=== PATIENT | male | born 1995 | race Caucasian/White ===

== ENCOUNTER 2018-04-04 16:38 | Inpatient (IN) | payer BC ==
[~2018-04-04] VITALS: Ht 175.3 cm; Wt 74.3 kg
[2018-04-04] MEDS ORDERED: ONDANSETRON INJ 2 MG/ML 2 ML VIAL IV STA (17:39)
[2018-04-04] MEDS ORDERED: MoRPHine SULFATE 4 MG/ML 1 ML CARP\\VIAL IV STA (17:39)
[2018-04-04] MEDS ORDERED: SODIUM CHLORIDE 0.9% 1000ML 1,000 ML IV STA (17:39)
[2018-04-04 18:07] LABS: BASO % 0.1 %; BASO ABS # 0.01 K/uL (0-0.2); HEMATOCRIT 45.1 % (42-52); HEMOGLOBIN 15.4 g/dL (14.0-18.0); IG# 0.04 K/uL (0.00-0.02); LYMPH % 4.5 %; LYMPH ABS # 0.74 K/uL (1.2-3.4); MEAN CELL VOLUME 82.8 fL (80-100); MEAN CORPUSCULAR HEMOGLOBIN 28.3 pg (25-34); MEAN CORPUSCULAR HGB CONC 34.1 g/dl (32-36); MEAN PLATELET VOLUME 10.3 fL (7.4-10.4); MONO % 4.7 %; MONO ABS # 0.76 K/uL (0.11-0.59); NEUT % 90.5 %; NEUT ABS # 14.75 K/uL (1.4-6.5); PLATELET COUNT 281 K/uL (130-400); RED CELL DISTRIBUTION WIDTH CV 15.2 % (11.5-14.5); RED CELL DISTRIBUTION WIDTH SD 46.1 fL (36.4-46.3)
[2018-04-04 18:30] LABS: ALBUMIN 4.2 gm/dl (3.4-5.0); CALCIUM 9.8 mg/dl (8.5-10.1); CREATININE 1.36 mg/dl (0.60-1.40); TOTAL PROTEIN 8.9 gm/dl (6.4-8.2)
--- NOTE | 2018-04-04 19:01 | DIAGNOSTIC IMAGING REPORT ---
APPENDIX ULTRASOUND CLINICAL HISTORY: rlq pain, vomiting COMPARISON STUDY: No previous studies for comparison. FINDINGS: Imaging and right lower quadrant was performed and sales representative adding machines images are submitted for interpretation. The appendix is not visualized. There are no abnormal fluid collections. IMPRESSION: Nonvisualization of the appendix. The study is therefore nondiagnostic in regards to acute appendicitis Electronically signed by: Rad Garcia M.D. 04/04/2018 7:00 PM Dictated Date/Time: 04/04/2018 6:59 PM
[2018-04-04] MEDS ORDERED: IBUP-103 PO (19:07)
[2018-04-04] MEDS ORDERED: DEXT1CAP9 PO (19:07)
[2018-04-04] MEDS ORDERED: OPTIRAY 320 IV PRN (19:30)
--- NOTE | 2018-04-04 20:17 | DIAGNOSTIC IMAGING REPORT ---
CT ABD/PELVIS IV CONTRAST ONLY CLINICAL HISTORY: Right lower quadrant pain and vomiting COMPARISON STUDY: Appendiceal ultrasound dated 04/04/2018 TECHNIQUE: Following the IV administration of 116 mL of Optiray-320, CT scan of the abdomen and pelvis was performed from the lung bases to the proximal femurs. Images are reviewed in the axial, sagittal, and coronal planes. IV contrast was administered without complication. A dose lowering technique was utilized adhering to the principles of ALARA. CT DOSE: 297.11 mGy.cm FINDINGS: Lower chest: The heart is normal in size and configuration, without pericardial effusion. The lung bases and pleural spaces are clear. There is a 7 mm rounded structure anterior to the right lobe of the liver, likely representing a lymph node. Liver: The contrast-enhanced liver is normal in size, contour, and attenuation. There is no intrahepatic biliary ductal dilatation. The hepatic veins and portal veins are patent. Gallbladder: Unremarkable. Spleen: No splenic masses are visualized. There is trace perisplenic fluid. Pancreas: Unremarkable. Adrenal glands: Unremarkable. Kidneys: There is symmetric renal cortical enhancement. The kidneys are normal in size without hydronephrosis. Bowel: There are fluid-filled dilated small bowel loops. There is a small bowel feces sign. The distal small bowel is of normal caliber. The colon is decompressed. The findings are indicative of a small bowel obstruction. There is no portal venous gas. There is no pneumatosis. There is mild mesenteric edema. There is a left lower quadrant transition zone. There is no evidence of acute appendicitis. Peritoneum: There is a small amount of pelvic ascites. There is trace perisplenic fluid. Vasculature: The abdominal aorta is normal in course and caliber. Adenopathy: None. Pelvic viscera: The bladder, and pelvic viscera are unremarkable. Skeletal structures: No destructive osseous lesions are seen. IMPRESSION: Small bowel obstruction with mild mesenteric edema, and low volume ascites Electronically signed by: Rad Garcia M.D. 04/04/2018 8:16 PM Dictated Date/Time: 04/04/2018 8:07 PM
[2018-04-04] MEDS ORDERED: MAGNESIUM HYDROXIDE SUSP 30 ML UDC PO PRN (21:00)
[2018-04-04] MEDS ORDERED: ZOLPIDEM TARTRATE 5 MG TAB PO PRN (21:00)
[2018-04-04] MEDS ORDERED: ALUMINUM/MAGNESIUM/SIMETH (MAALOX MAX) 30 ML UDC PO PRN (21:00)
[2018-04-04] MEDS ORDERED: ACETAMINOPHEN 325 MG TAB PO PRN (21:00)
--- NOTE | 2018-04-04 21:20 | History and Physical ---
History & Physical Date & Time of Service: April 04, 2018 at 21:08 Chief Complaint: Stomach Pain, Vomiting, Dehydration Primary Care Physician: No Doctor, Assigned History of Present Illness Source: patient This is a 23YO male with acute onset abdominal pain mainly right sided with associated nausea and vomiting seen in ED tonight. He denies fever or chills. He denies urinary symptoms. He ate some questionable food a day ago but denies diarrhea or change in bowel habits. He had a small BM yesterday but not passing much since then. He vomited a few times but has somewhat resolved since work-up in ED began. A US was negative for appendicitis. A CT scan show SBO and some inflammatory changes. Past Medical/Surgical History Medical Problems: (1) Small bowel obstruction Family History Negative for IBD Social History Smoking Status: Never Smoker Smokeless Tobacco Use: No Alcohol Use: socially Drug Use: none Marital Status: single Housing status: lives with roommate Occupational Status: employed Allergies Coded Allergies: No Known Allergies (Unverified , 04/04/18) Home Medications Scheduled PRN Dextromethorphan-Phenylephrine (Vicks Dayquil Cold & Flu), 1 DOSE PO UD PRN for Cold/Flu Symptoms Ibuprofen Tab (Advil), 200 MG PO UD PRN for Pain or Fever Review of Systems Constitutional: No fever, No chills, No weight loss Eyes: No worsening of vision, No redness, No diplopia ENT: No sore throat, No trouble swallowing Respiratory: No cough, No sputum, No shortness of breath Cardiovascular: No chest pain, No edema Abdomen: + pain, + nausea, + vomiting, No diarrhea, No constipation, No GI bleeding Musculoskeletal: No joint pain, No muscle pain, No swelling Genitourinary - Male: No hematuria, No dysuria Neurologic: No problem reported Psychiatric: No problem reported Endocrine: No fatigue, No excessive thirst, No excessive urination Hematologic / Lymphatic: No problem reported Integumentary: No problem reported Allergic / Immunologic: No problem reported Physical Exam Vital Signs Date Time Temp Pulse Resp B/P (MAP) Pulse Ox O2 Delivery O2 Flow Rate FiO2 04/04/18 20:47 75 14 120/77 97 04/04/18 18:46 75 20 127/66 99 Room Air 04/04/18 16:41 36.7 110 18 137/90 96 General Appearance: WD/WN, no apparent distress Head: normocephalic, atraumatic Eyes: normal inspection, PERRL, sclerae normal ENT: normal ENT inspection Neck: supple, no adenopathy, trachea midline Respiratory/Chest: chest non-tender, lungs clear Cardiovascular: regular rate, rhythm, no gallop, no murmur Abdomen/GI: normal bowel sounds, soft, no organomegaly, + tenderness (moderate without peritoneal signs) Genitourinary - Male: normal male genitalia Back: normal inspection, no CVA tenderness, normal range of motion Extremities/Musculoskelatal: no calf tenderness, no pedal edema Neurologic/Psych: no motor/sensory deficits, alert, oriented x 3 Skin: normal color, warm/dry, no rash Lymphatic: no adenopathy Diagnostics Laboratory Results Results Past 24 Hours Test 04/04/18 17:45 04/04/18 17:55 Range/Units Urine Color DK YELLOW Urine Appearance CLEAR CLEAR Urine pH 5.0 4.5-7.5 Urine Specific [place] 1.035 1.000-1.030 Urine Protein 1+ NEG Urine Glucose (UA) NEG NEG Urine Ketones 3+ NEG Urine Occult Blood TRACE NEG Urine Nitrite NEG NEG Urine Bilirubin NEG NEG Urine Urobilinogen NEG NEG Urine Leukocyte Esterase NEG NEG Urine WBC (Auto) 1-5 0-5 /hpf Urine RBC (Auto) 0-4 0-4 /hpf Urine Hyaline Casts (Auto) 10-30 0-5 /lpf Urine Epithelial Cells (Auto) 20-30 0-5 /lpf Urine Bacteria (Auto) NEG NEG White Blood Count 16.30 4.8-10.8 K/uL Red Blood Count 5.45 4.7-6.1 M/uL Hemoglobin 15.4 14.0-18.0 g/dL Hematocrit 45.1 42-52 % Mean Corpuscular Volume 82.8 80-100 fL Mean Corpuscular Hemoglobin 28.3 25-34 pg Mean Corpuscular Hemoglobin Concent 34.1 32-36 g/dl Platelet Count 281 130-400 K/uL Mean Platelet Volume 10.3 7.4-10.4 fL Neutrophils (%) (Auto) 90.5 % Lymphocytes (%) (Auto) 4.5 % Monocytes (%) (Auto) 4.7 % Eosinophils (%) (Auto) 0.0 % Basophils (%) (Auto) 0.1 % Neutrophils # (Auto) 14.75 1.4-6.5 K/uL Lymphocytes # (Auto) 0.74 1.2-3.4 K/uL Monocytes # (Auto) 0.76 0.11-0.59 K/uL Eosinophils # (Auto) 0.00 0-0.5 K/uL Basophils # (Auto) 0.01 0-0.2 K/uL RDW Standard Deviation 46.1 36.4-46.3 fL RDW Coefficient of Variation 15.2 11.5-14.5 % Immature Granulocyte % (Auto) 0.2 % Immature Granulocyte # (Auto) 0.04 0.00-0.02 K/uL Sodium Level 136 136-145 mmol/L Potassium Level 4.0 3.5-5.1 mmol/L Chloride Level 97 98-107 mmol/L Carbon Dioxide Level 32 21-32 mmol/L Anion Gap 7.0 3-11 mmol/L Blood Urea Nitrogen 18 7-18 mg/dl Creatinine 1.36 0.60-1.40 mg/dl Est Creatinine Clear Calc Drug Dose 85.2 ml/min Estimated GFR () 85.0 Estimated GFR (Non- 73.3 BUN/Creatinine Ratio 13.4 10-20 Random Glucose 102 70-99 mg/dl Calcium Level 9.8 8.5-10.1 mg/dl Total Bilirubin 0.6 0.2-1 mg/dl Aspartate Amino Transf (AST/SGOT) 19 15-37 U/L Alanine Aminotransferase (ALT/SGPT) 20 12-78 U/L Alkaline Phosphatase 60 45-117 U/L Total Protein 8.9 6.4-8.2 gm/dl Albumin 4.2 3.4-5.0 gm/dl Globulin 4.7 2.5-4.0 gm/dl Albumin/Globulin Ratio 0.9 0.9-[address] ABD/PELVIS IV CONTRAST ONLY CLINICAL HISTORY: Right lower quadrant pain and vomiting COMPARISON STUDY: Appendiceal ultrasound dated 04/04/2018 TECHNIQUE: Following the IV administration of 116 mL of Optiray-320, CT scan of the abdomen and pelvis was performed from the lung bases to the proximal femurs. Images are reviewed in the axial, sagittal, and coronal planes. IV contrast was administered without complication. A dose lowering technique was utilized adhering to the principles of ALARA. CT DOSE: 297.11 mGy.cm FINDINGS: Lower chest: The heart is normal in size and configuration, without pericardial effusion. The lung bases and pleural spaces are clear. There is a 7 mm rounded structure anterior to the right lobe of the liver, likely representing a lymph node. Liver: The contrast-enhanced liver is normal in size, contour, and attenuation. There is no intrahepatic biliary ductal dilatation. The hepatic veins and portal veins are patent. Gallbladder: Unremarkable. Spleen: No splenic masses are visualized. There is trace perisplenic fluid. Pancreas: Unremarkable. Adrenal glands: Unremarkable. Kidneys: There is symmetric renal cortical enhancement. The kidneys are normal in size without hydronephrosis. Bowel: There are fluid-filled dilated small bowel loops. There is a small bowel feces sign. The distal small bowel is of normal caliber. The colon is decompressed. The findings are indicative of a small bowel obstruction. There is no portal venous gas. There is no pneumatosis. There is mild mesenteric edema. There is a left lower quadrant transition zone. There is no evidence of acute appendicitis. Peritoneum: There is a small amount of pelvic ascites. There is trace perisplenic fluid. Vasculature: The abdominal aorta is normal in course and caliber. Adenopathy: None. Pelvic viscera: The bladder, and pelvic viscera are unremarkable. Skeletal structures: No destructive osseous lesions are seen. IMPRESSION: Small bowel obstruction with mild mesenteric edema, and low volume ascites Impression Assessment and Plan SBO without previous surgeries; possibly inflammatory or likely infectious -no signs of ischemia -no hernias -no trauma -IVF -IV abx -ngt decompression -ambulate -serial exams and KUBs -attempt conservative treatment DVT prophylaxis -SCDs Protonix Pain control ASA Classification: ASA Class I Resuscitation Status VTE Prophylaxis Will order VTE Prophylaxis: Yes Social Service Consult None Apply
[2018-04-04 22:00] VITALS: BP 134/82; PULSE 85; TEMP 36.8; O2SAT 95; Ht 175.3 cm; Wt 74.3 kg
[2018-04-04] MEDS ORDERED: MoRPHine SULFATE 4 MG/ML 1 ML CARP\\VIAL ONE (22:09)
[2018-04-04] MEDS: LACTATED RINGER'S 1000ML 1,000 ML IV SCH (22:11)
[2018-04-04] MEDS: MoRPHine SULFATE 2 MG/ML CARP IV PRN (22:11)
[2018-04-04] MEDS ORDERED: MoRPHine SULFATE 2 MG/ML CARP IV PRN (22:15)
[2018-04-04] MEDS: ONDANSETRON INJ 2 MG/ML 2 ML VIAL IV PRN (22:19)
[2018-04-04 22:39] VITALS: O2SAT 95
[2018-04-04] MEDS: METRONIDAZOLE / NSS 500 MG in PREMIXED NSS 100 ML IV SCH (22:41)
--- NOTE | 2018-04-04 22:46 | EMERGENCY ROOM VISIT NOTE ---
History First contact with patient: 17:33 Chief Complaint: VOMITING Stated Complaint: SMALL BOWEL OBSTRUCTION Nursing Triage Summary: N/V and abdominal pain History of Present Illness The patient is a 23 year old male who presents to the Emergency Room with complaints of abdominal pain, nausea and vomiting. The patient reports that 2 days ago, he developed abdominal cramping and vomiting. He has had multiple episodes of vomiting since then and is unable to keep anything down. She states that the pain is primarily right-sided. He does report he ate some beef which could have been bad. He has not had a bowel movement for the past 2 days. He denies fevers or hematemesis. He denies any history of medical problems or abdominal surgeries. He states that the pain is a cramping, constant pain and rates the discomfort a 6/10. He does report the cramping becomes worse when he vomits. Review of Systems A complete 10 point review of systems was reviewed with the patient with pertinent positives and negatives as per history of present illness. All else were negative. Past Medical/Surgical History Medical Problems: (1) Small bowel obstruction Social History Smoking Status: Never Smoker Smokeless Tobacco Use: No Drug Use: none Marital Status: single Occupation Status: employed Current/Historical Medications Scheduled PRN Dextromethorphan-Phenylephrine (Vicks Dayquil Cold & Flu), 1 DOSE PO UD PRN for Cold/Flu Symptoms Ibuprofen Tab (Advil), 200 MG PO UD PRN for Pain or Fever Physical Exam Vital Signs Date Time Temp Pulse Resp B/P (MAP) Pulse Ox O2 Delivery O2 Flow Rate FiO2 04/04/18 20:47 75 14 120/77 97 04/04/18 18:46 75 20 127/66 99 Room Air 04/04/18 16:41 36.7 110 18 137/90 96 Physical Exam VITALS: Vitals are noted on the nurse's note and reviewed by myself. Vital signs stable. GENERAL: This is a 23-year-old male, in no acute distress, nondiaphoretic, well- developed well-nourished. SKIN: The skin was without rashes. EYES: Pupils equal round and reactive to light and accommodation. MOUTH: Mucous membranes slightly dry. NECK: Supple without nuchal rigidity. HEART: Regular rate and rhythm without murmurs gallops or rubs. LUNGS: Clear to auscultation bilaterally without wheezes, rales or rhonchi. ABDOMEN: Positive bowel sounds. Abdomen is soft, mildly distended. There is mild, diffuse tenderness throughout with more focal tenderness in the right lower to mid abdomen. No guarding or rebound tenderness. NEURO: Patient was alert and oriented to person place and time. Medical Decision & Procedures ER Provider Diagnostic Interpretation: APPENDIX ULTRASOUND FINDINGS: Imaging and right lower quadrant was performed and sales and merchandising representative images are submitted for interpretation. The appendix is not visualized. There are no abnormal fluid collections. IMPRESSION: Nonvisualization of the appendix. The study is therefore nondiagnostic in regards to acute appendicitis CT ABD/PELVIS IV CONTRAST ONLY FINDINGS: Lower chest: The heart is normal in size and configuration, without pericardial effusion. The lung bases and pleural spaces are clear. There is a 7 mm rounded structure anterior to the right lobe of the liver, likely representing a lymph node. Liver: The contrast-enhanced liver is normal in size, contour, and attenuation. There is no intrahepatic biliary ductal dilatation. The hepatic veins and portal veins are patent. Gallbladder: Unremarkable. Spleen: No splenic masses are visualized. There is trace perisplenic fluid. Pancreas: Unremarkable. Adrenal glands: Unremarkable. Kidneys: There is symmetric renal cortical enhancement. The kidneys are normal in size without hydronephrosis. Bowel: There are fluid-filled dilated small bowel loops. There is a small bowel feces sign. The distal small bowel is of normal caliber. The colon is decompressed. The findings are indicative of a small bowel obstruction. There is no portal venous gas. There is no pneumatosis. There is mild mesenteric edema. There is a left lower quadrant transition zone. There is no evidence of acute appendicitis. Peritoneum: There is a small amount of pelvic ascites. There is trace perisplenic fluid. Vasculature: The abdominal aorta is normal in course and caliber. Adenopathy: None. Pelvic viscera: The bladder, and pelvic viscera are unremarkable. Skeletal structures: No destructive osseous lesions are seen. IMPRESSION: Small bowel obstruction with mild mesenteric edema, and low volume ascites Laboratory Results 04/04/18 17:55 Red Blood Count 5.45, Mean Corpuscular Volume 82.8, Mean Corpuscular Hemoglobin 28.3, Mean Corpuscular Hemoglobin Concent 34.1, Mean Platelet Volume 10.3, Neutrophils (%) (Auto) 90.5, Lymphocytes (%) (Auto) 4.5, Monocytes (%) (Auto) 4.7, Eosinophils (%) (Auto) 0.0, Basophils (%) (Auto) 0.1, Neutrophils # (Auto) 14.75, Lymphocytes # (Auto) 0.74, Monocytes # (Auto) 0.76, Eosinophils # (Auto) 0.00, Basophils # (Auto) 0.01 04/04/18 17:55 Test 04/04/18 17:45 04/04/18 17:55 Urine Color DK YELLOW Urine Appearance CLEAR (CLEAR) Urine pH 5.0 (4.5-7.5) Urine Specific [place] 1.035 (1.000-1.030) Urine Protein 1+ (NEG) Urine Glucose (UA) NEG (NEG) Urine Ketones 3+ (NEG) Urine Occult Blood TRACE (NEG) Urine Nitrite NEG (NEG) Urine Bilirubin NEG (NEG) Urine Urobilinogen NEG (NEG) Urine Leukocyte Esterase NEG (NEG) Urine WBC (Auto) 1-5 /hpf (0-5) Urine RBC (Auto) 0-4 /hpf (0-4) Urine Hyaline Casts (Auto) 10-30 /lpf (0-5) Urine Epithelial Cells (Auto) 20-30 /lpf (0-5) Urine Bacteria (Auto) NEG (NEG) White Blood Count 16.30 K/uL (4.8-10.8) Red Blood Count 5.45 M/uL (4.7-6.1) Hemoglobin 15.4 g/dL (14.0-18.0) Hematocrit 45.1 % (42-52) Mean Corpuscular Volume 82.8 fL (80-100) Mean Corpuscular Hemoglobin 28.3 pg (25-34) Mean Corpuscular Hemoglobin Concent 34.1 g/dl (32-36) Platelet Count 281 K/uL (130-400) Mean Platelet Volume 10.3 fL (7.4-10.4) Neutrophils (%) (Auto) 90.5 % Lymphocytes (%) (Auto) 4.5 % Monocytes (%) (Auto) 4.7 % Eosinophils (%) (Auto) 0.0 % Basophils (%) (Auto) 0.1 % Neutrophils # (Auto) 14.75 K/uL (1.4-6.5) Lymphocytes # (Auto) 0.74 K/uL (1.2-3.4) Monocytes # (Auto) 0.76 K/uL (0.11-0.59) Eosinophils # (Auto) 0.00 K/uL (0-0.5) Basophils # (Auto) 0.01 K/uL (0-0.2) RDW Standard Deviation 46.1 fL (36.4-46.3) RDW Coefficient of Variation 15.2 % (11.5-14.5) Immature Granulocyte % (Auto) 0.2 % Immature Granulocyte # (Auto) 0.04 K/uL (0.00-0.02) Anion Gap 7.0 mmol/L (3-11) Est Creatinine Clear Calc Drug Dose 85.2 ml/min Estimated GFR () 85.0 Estimated GFR (Non- 73.3 BUN/Creatinine Ratio 13.4 (10-20) Calcium Level 9.8 mg/dl (8.5-10.1) Total Bilirubin 0.6 mg/dl (0.2-1) Aspartate Amino Transf (AST/SGOT) 19 U/L (15-37) Alanine Aminotransferase (ALT/SGPT) 20 U/L (12-78) Alkaline Phosphatase 60 U/L (45-117) Total Protein 8.9 gm/dl (6.4-8.2) Albumin 4.2 gm/dl (3.4-5.0) Globulin 4.7 gm/dl (2.5-4.0) Albumin/Globulin Ratio 0.9 (0.9-2) Medications Administered Medications (Trade) Dose Ordered Sig/Ankit Route Start Time Stop Time Status Last Admin Dose Admin Sodium Chloride 1,000 ml @ 999 mls/hr Q1H1M STAT IV 04/04/18 17:39 04/04/18 18:39 DC 04/04/18 18:19 999 MLS/HR Ondansetron HCl (Zofran Inj) 4 mg NOW STAT IV 04/04/18 17:39 04/04/18 17:41 DC 04/04/18 18:19 4 MG Morphine Sulfate (MoRPHine SULFATE INJ) 4 mg NOW STAT IV 04/04/18 17:39 18 17:42 DC 04/04/18 18:19 4 MG Ondansetron HCl (Zofran Inj) 4 mg Q6H PRN IV 04/04/18 21:00 6/18/18 20:59 04/04/18 22:19 4 MG Morphine Sulfate (MoRPHine SULFATE INJ) 4 mg Q1H PRN IV 04/04/18 21:00 04/18/18 20:59 04/04/18 22:11 4 MG ED Course The patient was evaluated as above. Labs were drawn and IV access was obtained. Patient was medicated with 1 L normal saline solution, 4 mg Zofran and 4 mg morphine IV. Ultrasound of the appendix was performed and read by radiology as above. This was found to be nondiagnostic. CT of the abdomen and pelvis was performed and read by radiology as above. Results were discussed with the patient. Case was discussed with Dr. Barbosa of general surgery. He will evaluate the patient for admission. Medical Decision Differential diagnosis includes appendicitis, cholecystitis, gastroenteritis, gastritis, small bowel obstruction, among others. The patient is a 23-year-old male who presents today complaining of abdominal pain and vomiting. Labs revealed leukocytosis of 16,000. Labs were otherwise unremarkable. Urinalysis was not suggestive of infection. I initially worked up the patient for appendicitis. Ultrasound of the appendix was nondiagnostic. CT was then performed and showed a small bowel obstruction. I am unsure of the etiology of this is the patient has had no previous surgeries or history of inflammatory bowel disease. NG tube was inserted. General surgery was consulted and evaluated the patient for admission. The patient's case was reviewed with Dr. Mercado, ED attending physician, who agreed with my assessment and treatment plan. Medication Reconcilliation Current Medication List: was personally reviewed by me Blood Pressure Screening Patient's blood pressure: Normal blood pressure Impression Primary Impression: Small bowel obstruction Departure Information Dispostion Admitted as an inpatient Condition FAIR Referrals No Doctor, Assigned (PCP) Forms HOME CARE DOCUMENTATION FORM, IMPORTANT VISIT INFORMATION Patient Instructions My [facility] [employer]
[2018-04-04 23:13] VITALS: BP 124/75; PULSE 66; TEMP 36.6; O2SAT 95
[2018-04-04] MEDS: CIPROFLOXACIN / D5W 400 MG in PREMIXED IN D5W 200 ML IV SCH (23:37)
[2018-04-05] MEDS ORDERED: MoRPHine SULFATE 4 MG/ML 1 ML CARP\\VIAL ONE ×3 (01:16→23:52)
[2018-04-05] MEDS: MoRPHine SULFATE 2 MG/ML CARP IV PRN ×3 (01:17→23:55)
[2018-04-05] MEDS: LACTATED RINGER'S 1000ML 1,000 ML IV SCH ×3 (05:45→21:11)
[2018-04-05] MEDS: METRONIDAZOLE / NSS 500 MG in PREMIXED NSS 100 ML IV SCH ×3 (05:45→21:11)
[2018-04-05] MEDS: ONDANSETRON INJ 2 MG/ML 2 ML VIAL IV PRN ×2 (05:49→21:11)
[2018-04-05 06:06] LABS: BASO % 0.1 %; BASO ABS # 0.01 K/uL (0-0.2); EOS % 0.2 %; EOS ABS # 0.02 K/uL (0-0.5); HEMATOCRIT 40.5 % (42-52); HEMOGLOBIN 13.5 g/dL (14.0-18.0); IG# 0.02 K/uL (0.00-0.02); LYMPH % 10.7 %; LYMPH ABS # 1.26 K/uL (1.2-3.4); MEAN CELL VOLUME 83.9 fL (80-100); MEAN CORPUSCULAR HGB CONC 33.3 g/dl (32-36); MEAN PLATELET VOLUME 10.1 fL (7.4-10.4); MONO % 9.9 %; MONO ABS # 1.16 K/uL (0.11-0.59); NEUT % 78.9 %; PLATELET COUNT 247 K/uL (130-400); RED CELL DISTRIBUTION WIDTH CV 15.5 % (11.5-14.5); RED CELL DISTRIBUTION WIDTH SD 47.6 fL (36.4-46.3); WHITE BLOOD COUNT 11.77 K/uL (4.8-10.8)
[2018-04-05 06:44] LABS: ALBUMIN 3.3 gm/dl (3.4-5.0); CREATININE 1.22 mg/dl (0.60-1.40); POTASSIUM 4.3 mmol/L (3.5-5.1); TOTAL PROTEIN 7.7 gm/dl (6.4-8.2)
[2018-04-05 07:21] VITALS: BP 135/77; PULSE 76; TEMP 36.7; O2SAT 96
--- NOTE | 2018-04-05 07:21 | DIAGNOSTIC IMAGING REPORT ---
KUB CLINICAL HISTORY: Small bowel obstruction COMPARISON STUDY: CT scan dated 04/04/2018 FINDINGS: There are dilated small bowel loops measuring up tor 40 mm in diameter. There is gas within nondistended colon. There is a nasogastric tube, the tip of which projects over the gastric cardia. There is contrast within the bladder. IMPRESSION: 1. Nasogastric tube with its tip at the level the gastric cardia 2. Small bowel obstructive pattern Electronically signed by: Rad Garcia M.D. 04/05/2018 7:20 AM Dictated Date/Time: 04/05/2018 7:19 AM
[2018-04-05 07:30] VITALS: O2SAT 96
[2018-04-05] MEDS ORDERED: NURSING VERBAL MED ORDER ONE ×2 (07:45→18:15)
[2018-04-05] MEDS ORDERED: PROMETHAZINE HCL INJ 25 MG in SODIUM CHLORIDE 0.9% 50ML 50 ML IV PRN (08:00)
--- NOTE | 2018-04-05 10:47 | Surgery Progress Note ---
Surgery Progress Note Date of Service April 05, 2018. Subjective Post OP Day: HD 2 + complaints (some nausea but pain better), + ambulating, + nausea, + diet (npo) , No bowel movement, No vomiting Objective Vital Signs: Date Time Temp Pulse Resp B/P (MAP) Pulse Ox O2 Delivery O2 Flow Rate FiO2 04/05/18 07:21 36.7 76 18 135/77 (96) 96 Room Air 04/05/18 00:15 Room Air 04/04/18 23:13 36.6 66 15 124/75 (91) 95 Room Air 04/04/18 22:39 95 Room Air 04/04/18 22:01 89 14 131/78 96 04/04/18 22:00 36.8 85 16 134/82 95 Room Air 04/04/18 20:47 75 14 120/77 97 04/04/18 18:46 75 20 127/66 99 Room Air 04/04/18 16:41 36.7 110 18 137/90 96 General Appearance: WD/WN, no apparent distress Head: normocephalic, atraumatic Neck: supple, trachea midline Respiratory/Chest: lungs clear Cardiovascular: regular rate, rhythm, no gallop, no murmur Abdomen: normal bowel sounds, soft, + distended (less), + tenderness Extremities: non-tender, no pedal edema Laboratory Results: Results Past 24 Hours Test 04/04/18 17:45 04/04/18 17:55 04/05/18 05:51 Range/Units Urine Color DK YELLOW Urine Appearance CLEAR CLEAR Urine pH 5.0 4.5-7.5 Urine Specific [place] 1.035 1.000-1.030 Urine Protein 1+ NEG Urine Glucose (UA) NEG NEG Urine Ketones 3+ NEG Urine Occult Blood TRACE NEG Urine Nitrite NEG NEG Urine Bilirubin NEG NEG Urine Urobilinogen NEG NEG Urine Leukocyte Esterase NEG NEG Urine WBC (Auto) 1-5 0-5 /hpf Urine RBC (Auto) 0-4 0-4 /hpf Urine Hyaline Casts (Auto) 10-30 0-5 /lpf Urine Epithelial Cells (Auto) 20-30 0-5 /lpf Urine Bacteria (Auto) NEG NEG White Blood Count 16.30 11.77 4.8-10.8 K/uL Red Blood Count 5.45 4.83 4.7-6.1 M/uL Hemoglobin 15.4 13.5 14.0-18.0 g/dL Hematocrit 45.1 40.5 42-52 % Mean Corpuscular Volume 82.8 83.9 80-100 fL Mean Corpuscular Hemoglobin 28.3 28.0 25-34 pg Mean Corpuscular Hemoglobin Concent 34.1 33.3 32-36 g/dl Platelet Count 281 247 130-400 K/uL Mean Platelet Volume 10.3 10.1 7.4-10.4 fL Neutrophils (%) (Auto) 90.5 78.9 % Lymphocytes (%) (Auto) 4.5 10.7 % Monocytes (%) (Auto) 4.7 9.9 % Eosinophils (%) (Auto) 0.0 0.2 % Basophils (%) (Auto) 0.1 0.1 % Neutrophils # (Auto) 14.75 9.30 1.4-6.5 K/uL Lymphocytes # (Auto) 0.74 1.26 1.2-3.4 K/uL Monocytes # (Auto) 0.76 1.16 0.11-0.59 K/uL Eosinophils # (Auto) 0.00 0.02 0-0.5 K/uL Basophils # (Auto) 0.01 0.01 0-0.2 K/uL RDW Standard Deviation 46.1 47.6 36.4-46.3 fL RDW Coefficient of Variation 15.2 15.5 11.5-14.5 % Immature Granulocyte % (Auto) 0.2 0.2 % Immature Granulocyte # (Auto) 0.04 0.02 0.00-0.02 K/uL Sodium Level 136 137 136-145 mmol/L Potassium Level 4.0 4.3 3.5-5.1 mmol/L Chloride Level 97 101 98-107 mmol/L Carbon Dioxide Level 32 30 21-32 mmol/L Anion Gap 7.0 6.0 3-11 mmol/L Blood Urea Nitrogen 18 14 7-18 mg/dl Creatinine 1.36 1.22 0.60-1.40 mg/dl Est Creatinine Clear Calc Drug Dose 85.2 95.0 ml/min Estimated GFR () 85.0 96.9 Estimated GFR (Non- 73.3 83.6 BUN/Creatinine Ratio 13.4 11.3 10-20 Random Glucose 102 99 70-99 mg/dl Calcium Level 9.8 9.0 8.5-10.1 mg/dl Total Bilirubin 0.6 0.8 0.2-1 mg/dl Aspartate Amino Transf (AST/SGOT) 19 14 15-37 U/L Alanine Aminotransferase (ALT/SGPT) 20 17 12-78 U/L Alkaline Phosphatase 60 52 45-117 U/L Total Protein 8.9 7.7 6.4-8.2 gm/dl Albumin 4.2 3.3 3.4-5.0 gm/dl Globulin 4.7 4.4 2.5-4.0 gm/dl Albumin/Globulin Ratio 0.9 0.7 0.9-2 Assessment & Plan SBO -responding to conservative treatment -WBC down -ng with 180 cc -hopefully opens up or will need exploration
[2018-04-05] MEDS ORDERED: PANTOprazole INJ 40 MG in SYRINGE 0 ML IV SCH (11:00)
[2018-04-05 11:17] VITALS: BP 119/71; PULSE 72; TEMP 36.9; O2SAT 96
[2018-04-05] MEDS: CIPROFLOXACIN / D5W 400 MG in PREMIXED IN D5W 200 ML IV SCH ×2 (12:16→23:20)
[2018-04-05 14:55] VITALS: BP 133/84; PULSE 82; TEMP 37.1; O2SAT 96
[2018-04-05] MEDS: PANTOprazole INJ 40 MG in SYRINGE 0 ML IV SCH (21:30)
[2018-04-05 23:05] VITALS: BP 128/73; PULSE 78; TEMP 36.9; O2SAT 96
[2018-04-06] MEDS: LACTATED RINGER'S 1000ML 1,000 ML IV SCH ×2 (01:40→06:20)
[2018-04-06] MEDS ORDERED: NURSING VERBAL MED ORDER ONE (04:45)
[2018-04-06] MEDS: METRONIDAZOLE / NSS 500 MG in PREMIXED NSS 100 ML IV SCH ×3 (05:38→21:13)
[2018-04-06 06:26] LABS: HEMOGLOBIN 12.2 g/dL (14.0-18.0); MEAN CELL VOLUME 84.5 fL (80-100); MEAN CORPUSCULAR HEMOGLOBIN 27.9 pg (25-34); MEAN PLATELET VOLUME 10.1 fL (7.4-10.4); PLATELET COUNT 210 K/uL (130-400); RED CELL DISTRIBUTION WIDTH CV 15.4 % (11.5-14.5); RED CELL DISTRIBUTION WIDTH SD 47.5 fL (36.4-46.3); WHITE BLOOD COUNT 9.56 K/uL (4.8-10.8)
[2018-04-06 07:01] LABS: CALCIUM 8.4 mg/dl (8.5-10.1); CREATININE 1.14 mg/dl (0.60-1.40); POTASSIUM 3.8 mmol/L (3.5-5.1)
[2018-04-06 07:08] VITALS: BP 124/80; PULSE 73; TEMP 36.9; O2SAT 96
[2018-04-06 07:50] VITALS: O2SAT 96
--- NOTE | 2018-04-06 08:12 | DIAGNOSTIC IMAGING REPORT ---
KUB HISTORY: Small bowel obstruction. Follow-up. COMPARISON: KUB 04/05/2018. FINDINGS: The bowel gas pattern is unremarkable. There are no dilated loops of small bowel to suggest an obstruction. No renal calculi. No ureteral calculi. No pneumoperitoneum or pneumatosis. IMPRESSION: Interval resolution of the small bowel obstruction pattern. Electronically signed by: Laurent Rojas M.D. 04/06/2018 8:10 AM Dictated Date/Time: 04/06/2018 8:10 AM
[2018-04-06] MEDS ORDERED: BISACODYL 10 MG SUPP PR STA (09:06)
[2018-04-06] MEDS: PANTOprazole INJ 40 MG in SYRINGE 0 ML IV SCH ×2 (09:12→20:52)
[2018-04-06] MEDS: D5W AND 1/2NSS + 20MEQ KCL 1,000 ML IV SCH ×2 (10:19→21:13)
--- NOTE | 2018-04-06 10:24 | Surgery Progress Note ---
Surgery Progress Note Date of Service April 06, 2018. Subjective This is a 23YO male with acute onset abdominal pain mainly right sided with associated nausea and vomiting, pt was admitted to hospital for SBO, pt is doing better, no abdominal pain now, passed gas, no nausea, no vomiting, no fever, NG tube- 250ml, bloody color. Objective Vital Signs: Date Time Temp Pulse Resp B/P (MAP) Pulse Ox O2 Delivery O2 Flow Rate FiO2 04/06/18 07:50 96 Room Air 04/06/18 07:08 36.9 73 18 124/80 (95) 96 Room Air 04/05/18 23:15 Room Air 04/05/18 23:05 36.9 78 16 128/73 (91) 96 Room Air 04/05/18 16:10 Room Air 04/05/18 14:55 37.1 82 18 133/84 (100) 96 Room Air 04/05/18 11:17 36.9 72 18 119/71 (87) 96 Room Air General Appearance: WD/WN, no apparent distress Head: normocephalic Neck: supple, no JVD Respiratory/Chest: normal breath sounds, no respiratory distress Cardiovascular: regular rate, rhythm, no edema, no gallop, no JVD, no murmur Abdomen: normal bowel sounds, non tender, non distended, soft, no organomegaly Extremities: normal range of motion, non-tender, normal inspection Laboratory Results: Results Past 24 Hours Test 04/06/18 06:04 Range/Units White Blood Count 9.56 4.8-10.8 K/uL Red Blood Count 4.38 4.7-6.1 M/uL Hemoglobin 12.2 14.0-18.0 g/dL Hematocrit 37.0 42-52 % Mean Corpuscular Volume 84.5 80-100 fL Mean Corpuscular Hemoglobin 27.9 25-34 pg Mean Corpuscular Hemoglobin Concent 33.0 32-36 g/dl RDW Standard Deviation 47.5 36.4-46.3 fL RDW Coefficient of Variation 15.4 11.5-14.5 % Platelet Count 210 130-400 K/uL Mean Platelet Volume 10.1 7.4-10.4 fL Sodium Level 138 136-145 mmol/L Potassium Level 3.8 3.5-5.1 mmol/L Chloride Level 102 98-107 mmol/L Carbon Dioxide Level 30 21-32 mmol/L Anion Gap 6.0 3-11 mmol/L Blood Urea Nitrogen 10 7-18 mg/dl Creatinine 1.14 0.60-1.40 mg/dl Est Creatinine Clear Calc Drug Dose 101.7 ml/min Estimated GFR () 105.2 Estimated GFR (Non- 90.8 BUN/Creatinine Ratio 8.8 10-20 Random Glucose 84 70-99 mg/dl Calcium Level 8.4 8.5-10.1 mg/dl Assessment & Plan assessment: This is a 23YO male with acute onset abdominal pain mainly right sided with associated nausea and vomiting. IMP: SBO, pt had KUB yesterday- FINDINGS: The bowel gas pattern is unremarkable. There are no dilated loops of small bowel to suggest an obstruction. No renal calculi. No ureteral calculi. No pneumoperitoneum or pneumatosis. IMPRESSION: Interval resolution of the small bowel obstruction pattern. plan: D/C NG, clear diet, OOB I also D/W possible surgery( exploratory laparotomy) if pt develops abdominal pain, nausea and vomiting, pt understood, he agrees with the plan, I answered all questions,
[2018-04-06] MEDS: CIPROFLOXACIN / D5W 400 MG in PREMIXED IN D5W 200 ML IV SCH ×2 (12:59→23:18)
[2018-04-06 15:37] VITALS: BP 113/71; PULSE 73; TEMP 36.9; O2SAT 95
[2018-04-06 23:10] VITALS: BP 112/75; PULSE 62; TEMP 36.6; O2SAT 99
[2018-04-07] MEDS: METRONIDAZOLE / NSS 500 MG in PREMIXED NSS 100 ML IV SCH ×2 (05:33→14:00)
[2018-04-07 08:05] VITALS: BP 112/66; PULSE 75; TEMP 36.6; O2SAT 96
[2018-04-07 08:33] VITALS: O2SAT 96
[2018-04-07] MEDS: PANTOprazole INJ 40 MG in SYRINGE 0 ML IV SCH (08:46)
--- NOTE | 2018-04-07 10:15 | Surgery Progress Note ---
Surgery Progress Note Date of Service April 07, 2018. Subjective Post OP Day: HD # 3 + feeling well, + ambulating, + bowel movement, + flatus, + pain controlled, + diet (clear liquids), No complaints, No nausea, No vomiting Objective Vital Signs: Date Time Temp Pulse Resp B/P (MAP) Pulse Ox O2 Delivery O2 Flow Rate FiO2 04/07/18 08:33 96 Room Air 04/07/18 08:05 36.6 75 16 112/66 (81) 96 Room Air 04/07/18 07:45 Room Air 04/06/18 23:10 36.6 62 16 112/75 (87) 99 Room Air 04/06/18 19:30 Room Air 04/06/18 15:37 36.9 73 17 113/71 (85) 95 Room Air 04/06/18 15:30 Room Air General Appearance: WD/WN, no apparent distress Head: normocephalic, atraumatic Neck: trachea midline Respiratory/Chest: no respiratory distress, no accessory muscle use Abdomen: non tender (no rigidity, guarding, or rebound), soft, no organomegaly , no pulsatile mass, + distended (mild distention) Assessment & Plan Partial SBO- resolved -vitals stable - abdominal pain resolved - tolerated clear liquids - + bowel function Plan: Advance diet to full liquids for lunch if tolerated possible discharge this afternoon encourage ambulation/OOB to chair D/C IV fluids and IV Antibiotics Dr. Bagley has seen pt, agrees with above
[2018-04-07] MEDS: D5W AND 1/2NSS + 20MEQ KCL 1,000 ML IV SCH ×2 (11:10→15:30)
[2018-04-07 11:47] VITALS: BP 112/68; PULSE 67; TEMP 36.5; O2SAT 98
[2018-04-07] MEDS: CIPROFLOXACIN / D5W 400 MG in PREMIXED IN D5W 200 ML IV SCH (12:05)
--- NOTE | 2018-04-07 12:57 | Discharge Instructions ---
Discharge Instructions Date of Service April 07, 2018. Admission Reason for Admission: Small Bowel Obstruction Discharge Discharge Diagnosis / Problem: Same Discharge Goals Goal(s): Decrease discomfort, Improve function Activity Recommendations Activity Limitations: as noted below Lifting Limitations: none, gradually increase as tolerated Exercise/Sports Limitations: none, gradually increase as tolerated May Resume Sexual Activity: when tolerated Shower/Bathe: no limitations Driving or Machine Use: no limitations . Instructions / Follow-Up Instructions / Follow-Up Recommend continuing full liquid/soft diet for a few days and then advance slowly as tolerated. Avoid dry/dense meats for one week or until tolerated soft foods really well Follow-up in surgical office in 1-2 weeks, please call office at [phone] to make an appointment If you develop abdominal pain, nausea, vomiting again please report to emergency room for further evaluation and care Current Hospital Diet Patient's current hospital diet: Full Liquid Diet Discharge Diet Recommended Diet: Low Fiber Diet Pending Studies Studies pending at discharge: no Medical Emergencies . Who to Call and When: Medical Emergencies: If at any time you feel your situation is an emergency, please call 911 immediately. . Non-Emergent Contact Non-Emergency issues call your: Primary Care Provider, Surgeon Call Non-Emergent contact if: you have a fever, temperature is above 101, your pain is not controlled, your pain is worsening, your pain is unusual for you . "Provider Documentation" section prepared by Radha Kenyon. .
[2018-04-07 13:00] VITALS: BP 112/68; PULSE 67; TEMP 36.5; O2SAT 98
== END 2018-04-07 16:28 | disposition home or self-care (01) | DRG 390 ==
LOC: C.EDB 16:41 → C.MSW 21:07 → ENRESERV 21:27
PROVIDERS: ADMIT Surgery; ATTEND Surgery
DX: K56.699 Other intestinal obstruction unspecified as to partial versus complete obstruction (principal)